=== PATIENT | male | born 1975 | race Caucasian/White ===

== ENCOUNTER 2016-10-11 09:42 | Emergency (ER) | payer MEDICAID ==
[~2016-10-11] VITALS: Ht 185.4 cm; Wt 84.7 kg
[~2016-10-11 09:42] MED LIST: ACID1TAB7 PO; AMOX1TAB12 PO; ASPI-515 PO; ATOR20TA9 PO; ESCI10TA PO; GABA300C10 PO; HYDR-3240 PO; INSU100C5 SQ-INSULIN; INSU100V13 SQ; MORP30TA PO; OXYC1TAB7 PO; OXYC20TA2 PO; PARO10TA3 PO; SULF1TAB24 PO; TRAZ50TA18 PO
[2016-10-11] MEDS ORDERED: ONDANSETRON 2MG/ML, 2ML IVPush ONE (10:00)
[2016-10-11] MEDS ORDERED: SODIUM CHLORIDE 0.9% 1,000 ML IV ONE (10:00)
[2016-10-11] MEDS ORDERED: MORPHINE SULFATE 4 MG/ML, 1ML IVPush PRN (10:00)
[2016-10-11] MEDS ORDERED: ONDANSETRON 2MG/ML, 2ML ONE (10:30)
[2016-10-11] MEDS ORDERED: MORPHINE SULFATE 4 MG/ML, 1ML ONE (10:30)
[2016-10-11 10:33] LABS: ASPARTATE AMINO TRANSFERASE 26 U/L (15-37); BLOOD UREA NITROGEN 9 mg/dL (7-18)
[2016-10-11] MEDS ORDERED: BACITRACIN ZINC OINT 500U/GM, 0.9 GM ONE (11:20)
[2016-10-11 11:36] VITALS: BP 113/77
== END 2016-10-11 11:38 | disposition home or self-care (01) ==
LOC: ED 10:30
DX: L89.92 Pressure ulcer of unspecified site, stage 2 (principal); E11.621 Type 2 diabetes mellitus with foot ulcer; E78.00 Pure hypercholesterolemia, unspecified; I10 Essential (primary) hypertension; E11.21 Type 2 diabetes mellitus with diabetic nephropathy; Z79.4 Long term (current) use of insulin; Z87.891 Personal history of nicotine dependence; E11.40 Type 2 diabetes mellitus with diabetic neuropathy, unspecified; Z89.511 Acquired absence of right leg below knee
CPT/HCPCS: 36415; 73630; 80053; 85025; 96361; 96374; 96375; 99285; J2405; J7030

== ENCOUNTER 2017-01-23 22:49 | Emergency (ER) | payer MEDICAID, MEDICARE ==
[~2017-01-23] VITALS: Ht 185.4 cm; Wt 101.7 kg
[2017-01-23] MEDS ORDERED: INSU100C SQ-INSULIN (23:10)
[2017-01-23] MEDS ORDERED: OXYC20TA2 PO (23:12)
[2017-01-23] MEDS ORDERED: DOXY100C2 PO (23:12)
[2017-01-23 23:18] LABS: HEMATOCRIT 50.4 % (39.2-51.8); WHITE BLOOD COUNT 6.4 x10^3/uL (3.4-10)
[2017-01-23 23:31] LABS: ASPARTATE AMINO TRANSFERASE 43 U/L (15-37); BLOOD UREA NITROGEN 9 mg/dL (7-18)
[2017-01-23 23:33] LABS: ACETAMINOPHEN 2 mcg/mL (10-30)
[2017-01-24 01:22] VITALS: BP 139/84
== END 2017-01-24 01:25 | disposition home or self-care (01) ==
LOC: ED 23:27
DX: M25.472 Effusion, left ankle (principal); I10 Essential (primary) hypertension; E78.00 Pure hypercholesterolemia, unspecified; E11.40 Type 2 diabetes mellitus with diabetic neuropathy, unspecified
CPT/HCPCS: 36415; 80053; 80307; 80329; 85025; 99285; G0479; G0480

== ENCOUNTER 2019-09-26 08:57 | Outpatient (CLI) | payer MEDICARE | END 2019-09-26 23:59 | disposition home or self-care (01) | LOC: WOUND 08:57 | PROVIDERS: ATTEND Podiatrist Foot & Ankle Surgery | DX: T87.89 Other complications of amputation stump (principal); E11.621 Type 2 diabetes mellitus with foot ulcer; L97.521 Non-pressure chronic ulcer of other part of left foot limited to breakdown of skin; E11.40 Type 2 diabetes mellitus with diabetic neuropathy, unspecified; E11.51 Type 2 diabetes mellitus with diabetic peripheral angiopathy without gangrene; F32.9 Major depressive disorder, single episode, unspecified; G94 Other disorders of brain in diseases classified elsewhere; I12.9 Hypertensive chronic kidney disease with stage 1 through stage 4 chronic kidney disease, or unspecified chronic kidney disease; E11.22 Type 2 diabetes mellitus with diabetic chronic kidney disease; N18.9 Chronic kidney disease, unspecified; E11.69 Type 2 diabetes mellitus with other specified complication; M86.672 Other chronic osteomyelitis, left ankle and foot; G89.4 Chronic pain syndrome; F17.200 Nicotine dependence, unspecified, uncomplicated; Z89.421 Acquired absence of other right toe(s); Z79.4 Long term (current) use of insulin; Y83.5 Amputation of limb(s) as the cause of abnormal reaction of the patient, or of later complication, without mention of misadventure at the time of the procedure; Y92.238 Other place in hospital as the place of occurrence of the external cause | CPT/HCPCS: 97597; G0463; 99214 ==

== ENCOUNTER → 2019-09-26 | Outpatient (CLI) | payer MEDICARE ==
[~2019-09-26] MED LIST changes: +ATOR20TA37 PO; -ATOR20TA9 PO; +DOXY100C2 PO; +INSU100C SQ-INSULIN; -TRAZ50TA18 PO; +TRAZ50TA66 PO
== END | disposition home or self-care (01) ==
LOC: CFH 10:22
PROVIDERS: ATTEND Podiatrist Foot & Ankle Surgery
DX: M77.32 Calcaneal spur, left foot (principal); M25.872 Other specified joint disorders, left ankle and foot; E11.621 Type 2 diabetes mellitus with foot ulcer

== ENCOUNTER → 2019-10-10 | Outpatient (CLI) | payer MEDICARE | END | disposition home or self-care (01) | LOC: WOUND 10:06 | PROVIDERS: ATTEND Podiatrist Foot & Ankle Surgery | DX: E11.621 Type 2 diabetes mellitus with foot ulcer (principal); L97.521 Non-pressure chronic ulcer of other part of left foot limited to breakdown of skin; E11.40 Type 2 diabetes mellitus with diabetic neuropathy, unspecified; E11.51 Type 2 diabetes mellitus with diabetic peripheral angiopathy without gangrene; F32.9 Major depressive disorder, single episode, unspecified; I10 Essential (primary) hypertension; G89.4 Chronic pain syndrome; I12.9 Hypertensive chronic kidney disease with stage 1 through stage 4 chronic kidney disease, or unspecified chronic kidney disease; E11.22 Type 2 diabetes mellitus with diabetic chronic kidney disease; N18.9 Chronic kidney disease, unspecified; F17.200 Nicotine dependence, unspecified, uncomplicated; Z89.422 Acquired absence of other left toe(s); Z89.421 Acquired absence of other right toe(s); Z79.4 Long term (current) use of insulin | CPT/HCPCS: 97597 ==

== ENCOUNTER → 2019-12-23 | Outpatient (CLI) | payer MEDICAID, MEDICARE ==
[~2019-12-23] MED LIST changes: +ALBUMIN HUMAN 25%, 25GM/100ML ONE; +LIDOCAINE 1%, 10ML ONE
== END | disposition home or self-care (01) ==
LOC: RAD 11:22
PROVIDERS: ATTEND Internal Medicine Gastroenterology
DX: R18.8 Other ascites (principal); K70.30 Alcoholic cirrhosis of liver without ascites; Z88.8 Allergy status to other drugs, medicaments and biological substances; Z91.048 Other nonmedicinal substance allergy status
CPT/HCPCS: 49083; P9047

== ENCOUNTER 2020-01-06 17:22 | Emergency (ER) | payer MEDICARE ==
[~2020-01-06] VITALS: Ht 185.4 cm; Wt 97.0 kg
[~2020-01-06 17:22] MED LIST changes: -ALBUMIN HUMAN 25%, 25GM/100ML ONE; -LIDOCAINE 1%, 10ML ONE
--- NOTE | 2020-01-06 19:35 | NUR ---
CRUDE TESTER: PT AMBULATORY TO ROOM FROM LOBBY WITH STEADY GAIT WITH [employer]
[2020-01-06 20:07] LABS: MICROSCOPIC AUTO
[2020-01-06] MEDS ORDERED: LIDOCAINE-MPF 1%, 5ML ONE (21:17)
[2020-01-06 21:20] LABS: ALANINE AMINOTRANSFERASE 22 U/L (12-78); ALBUMIN 2.1 g/dL (3.4-5.0); ANION GAP 4 mmol/L (5-15); BASOPHILS % (AUTO) 1 % (0-1); CALCIUM 8.1 mg/dL (8.5-10.1); CHLORIDE 109 mmol/L (98-107); CREATININE 0.97 mg/dL (0.7-1.3); EOSINOPHILS % (AUTO) 4 % (1-7); LYMPHOCYTES % (AUTO) 31 % (22-44); MEAN CORPUSCULAR HEMOGLOBIN 29.6 pg (27.5-34.5); MEAN CORPUSCULAR HGB CONC 33.5 g/dL (33.2-36.2); MEAN PLATELET VOLUME 9.1 fL (7.4-10.4); MONOCYTES % (AUTO) 9 % (2-9); NEUTROPHILS % (AUTO) 54 % (42-75); PLATELET COUNT 138 x10^3/uL (130-400); RED BLOOD COUNT 5.09 x10^6/uL (4.38-5.82); RED CELL DISTRIBUTION WIDTH 15.5 % (9.4-14.8)
[2020-01-06 21:22] LABS: ALKALINE PHOSPHATASE 46 U/L (45-117); BILIRUBIN,TOTAL 1.6 mg/dL (0.2-1.0)
[2020-01-06 21:23] LABS: MD NO
--- NOTE | 2020-01-06 21:23 | NUR ---
Paracentesis supplies requested from ultrasound
[2020-01-07 01:53] VITALS: BP 122/68
== END 2020-01-07 01:55 | disposition home or self-care (01) ==
LOC: ED 21:31
DX: S90.812A Abrasion, left foot, initial encounter (principal); K70.31 Alcoholic cirrhosis of liver with ascites; K40.91 Unilateral inguinal hernia, without obstruction or gangrene, recurrent; Z87.891 Personal history of nicotine dependence; Z88.2 Allergy status to sulfonamides; Z88.8 Allergy status to other drugs, medicaments and biological substances; Z88.1 Allergy status to other antibiotic agents; Z91.048 Other nonmedicinal substance allergy status; W18.30XA Fall on same level, unspecified, initial encounter; Y93.89 Activity, other specified; Y92.89 Other specified places as the place of occurrence of the external cause; Y99.8 Other external cause status
CPT/HCPCS: 36415; 49083; 76857; 80053; 81001; 82042; 83615; 85025; 87070; 87205; 89051; 99285

== ENCOUNTER 2020-01-23 10:22 | Outpatient (CLI) | payer MEDICARE, MEDICAID ==
[~2020-01-23 10:22] MED LIST changes: -ESCI10TA PO; +ESCI10TA5 PO
[2020-01-23] MEDS ORDERED: LIDOCAINE 1%, 10ML ONE (10:27)
[2020-01-23] MEDS ORDERED: ALBUMIN HUMAN 25% 100 ML IV ONE (11:30)
[2020-01-23] MEDS ORDERED: ALBUMIN HUMAN 25% 200 ML IV ONE ×2 (11:30)
[2020-01-30] MEDS ORDERED: OXYC5CAP2 PO (14:46)
[2020-01-30] MEDS ORDERED: INSU100V13 SQ (14:46)
[2020-01-30] MEDS ORDERED: ALPR1TAB2 PO (14:46)
[2020-02-14] MEDS ORDERED: FURO20TA3 PO (12:00)
[2020-02-14] MEDS ORDERED: SPIR25TA PO (12:00)
== END 2020-01-23 23:59 | disposition home or self-care (01) ==
LOC: RAD 10:22
PROVIDERS: ATTEND Internal Medicine Gastroenterology
DX: R18.8 Other ascites (principal); K74.60 Unspecified cirrhosis of liver; Z88.8 Allergy status to other drugs, medicaments and biological substances; Z91.048 Other nonmedicinal substance allergy status; Z79.82 Long term (current) use of aspirin; Z79.899 Other long term (current) drug therapy; Z79.4 Long term (current) use of insulin; Z72.89 Other problems related to lifestyle; Z87.891 Personal history of nicotine dependence; Z82.49 Family history of ischemic heart disease and other diseases of the circulatory system
CPT/HCPCS: 49083

== ENCOUNTER → 2020-01-30 | Outpatient (CLI) | payer MEDICARE, MEDICAID ==
[~2020-01-30] MED LIST changes: +ALPR1TAB2 PO; +ESCI10TA PO; -ESCI10TA5 PO; +OXYC5CAP2 PO
[2020-01-30 15:37] LABS: ALANINE AMINOTRANSFERASE 18 U/L (12-78); ALBUMIN 2.2 g/dL (3.4-5.0); ANION GAP 6 mmol/L (5-15); CALCIUM 8.4 mg/dL (8.5-10.1); CHLORIDE 109 mmol/L (98-107); CREATININE 0.97 mg/dL (0.7-1.3)
[2020-01-30 15:40] LABS: ALKALINE PHOSPHATASE 40 U/L (45-117); BILIRUBIN,TOTAL 2.8 mg/dL (0.2-1.0); TOTAL PROTEIN 6.7 g/dL (6.4-8.2)
== END | disposition home or self-care (01) ==
LOC: STAR 14:07
PROVIDERS: ATTEND Surgery
DX: Z01.812 Encounter for preprocedural laboratory examination (principal); Z20.828 Contact with and (suspected) exposure to other viral communicable diseases; K40.90 Unilateral inguinal hernia, without obstruction or gangrene, not specified as recurrent
CPT/HCPCS: 36415; 80053; 87635; 93005

== ENCOUNTER 2020-02-04 05:17 | Day surgery (SDC) | payer MEDICARE, MEDICAID ==
[~2020-02-04] VITALS: Ht 185.4 cm; Wt 103.1 kg
[2020-02-04 06:00] VITALS: BP 110/82
[2020-02-04] MEDS ORDERED: LACTATED RINGERS 1,000 ML IV SCH (06:00)
[2020-02-04] MEDS ORDERED: CHLORHEXIDINE 15 ML UDC MM ONE (06:00)
[2020-02-04] MEDS ORDERED: EPINEPHRINE 1 MG/ML, 1ML ONE (06:47)
[2020-02-04] MEDS ORDERED: BUPIVACAINE/PF 0.5% ONE (06:47)
[2020-02-04] MEDS ORDERED: MIDAZOLAM 1 MG/ML, 2ML ONE (07:05)
[2020-02-04] MEDS ORDERED: FENTANYL PF 250 MCG/5ML ONE (07:05)
[2020-02-04] MEDS ORDERED: PROPOFOL 10 MG/ML, 20ML ONE (07:27)
[2020-02-04] MEDS ORDERED: ONDANSETRON 2MG/ML, 2ML ONE (07:27)
[2020-02-04] MEDS ORDERED: SUGAMMADEX 200 MG/2 ML IVPush ONE (07:27)
[2020-02-04] MEDS ORDERED: SUCCINYLCHOLINE 20 MG/ML, 10ML ONE (07:27)
[2020-02-04] MEDS ORDERED: CEFAZOLIN 1,000 MG ONE (07:27)
[2020-02-04] MEDS ORDERED: ROCURONIUM 10MG/ML,5ML ONE (07:27)
[2020-02-04] MEDS ORDERED: METOCLOPRAMIDE 5 MG/ML, 2ML IV PRN (08:30)
[2020-02-04] MEDS ORDERED: LABETALOL 5MG/ML, 20ML IV PRN (08:30)
[2020-02-04] MEDS ORDERED: HYDROmorphone 1 MG/ML, 1ML INJ IV PRN (08:30)
[2020-02-04] MEDS ORDERED: ALBUTEROL SULFATE 2.5 MG/3 ML NPPB PRN (08:30)
[2020-02-04] MEDS ORDERED: KETOROLAC 30 MG/1 ML IV PRN (08:30)
[2020-02-04] MEDS ORDERED: OXYcodone 5 MG/5 ML ORAL.SOL UDC PO PRN (08:30)
[2020-02-04] MEDS ORDERED: DIAZEPAM 5 MG/ML, 2ML IV PRN ×2 (08:30)
[2020-02-04] MEDS ORDERED: hydrALAzine 20 MG/ML, 1ML IV PRN (08:30)
[2020-02-04] MEDS ORDERED: PROMETHAZINE 25 MG/ML, 1ML IV PRN (08:30)
[2020-02-04] MEDS ORDERED: MEPERIDINE/PF 25MG/0.5ML IVPush PRN (08:30)
[2020-02-04] MEDS ORDERED: FENTANYL PF 100 MCG/2ML IV PRN (08:30)
[2020-02-04] MEDS ORDERED: ONDANSETRON 2MG/ML, 2ML IVPush PRN (08:30)
[2020-02-04] MEDS ORDERED: DIAZEPAM 5 MG/ML, 2ML ONE (08:53)
[2020-02-04] MEDS ORDERED: FENTANYL PF 100 MCG/2ML ONE (08:53)
[2020-02-04] MEDS ORDERED: PROMETHAZINE 25 MG/ML, 1ML ONE (08:54)
[2020-02-04] MEDS ORDERED: OXYcodone 5 MG/5 ML ORAL.SOL UDC ONE (09:49)
== END 2020-02-04 13:48 | disposition home or self-care (01) ==
LOC: OUT 05:17
PROVIDERS: ATTEND Surgery
DX: K40.90 Unilateral inguinal hernia, without obstruction or gangrene, not specified as recurrent (principal); R18.8 Other ascites; K74.60 Unspecified cirrhosis of liver; K72.90 Hepatic failure, unspecified without coma; E11.9 Type 2 diabetes mellitus without complications; Z79.4 Long term (current) use of insulin; Z79.891 Long term (current) use of opiate analgesic; Z79.899 Other long term (current) drug therapy; Z87.891 Personal history of nicotine dependence; Z88.8 Allergy status to other drugs, medicaments and biological substances
CPT/HCPCS: 49505; 74018; 82962; C1781; J0171; J0330; J0690; J2250; J2405; J2550; J2704; J3010; J3360; J7120

== ENCOUNTER → 2020-02-26 | Outpatient (CLI) | payer MEDICARE, MEDICAID ==
[~2020-02-26] MED LIST changes: +FURO20TA3 PO; +LIDOCAINE 1%, 10ML ONE; +SPIR25TA PO
== END | disposition home or self-care (01) ==
LOC: RAD 10:46
PROVIDERS: ATTEND Internal Medicine Gastroenterology
DX: K70.31 Alcoholic cirrhosis of liver with ascites (principal); F15.10 Other stimulant abuse, uncomplicated; Z79.4 Long term (current) use of insulin; Z79.899 Other long term (current) drug therapy; Z88.8 Allergy status to other drugs, medicaments and biological substances; Z72.89 Other problems related to lifestyle; Z87.891 Personal history of nicotine dependence
CPT/HCPCS: 49083

== ENCOUNTER → 2020-03-06 | Outpatient (CLI) | payer MEDICARE, MEDICAID ==
[~2020-03-06] MED LIST changes: +ALBUMIN HUMAN 25%, 25GM/100ML ONE
== END | disposition home or self-care (01) ==
LOC: RAD 11:39
PROVIDERS: ATTEND Internal Medicine Gastroenterology
DX: R18.8 Other ascites (principal); K70.30 Alcoholic cirrhosis of liver without ascites; Z88.8 Allergy status to other drugs, medicaments and biological substances
CPT/HCPCS: 49083; P9047

== ENCOUNTER 2020-03-25 11:51 | Outpatient (CLI) | payer MEDICARE, MEDICAID ==
[~2020-03-25 11:51] MED LIST changes: -ALBUMIN HUMAN 25%, 25GM/100ML ONE; -LIDOCAINE 1%, 10ML ONE
[2020-03-25] MEDS ORDERED: LIDOCAINE 1%, 10ML ONE (11:57)
[2020-03-25] MEDS ORDERED: ALBUMIN HUMAN 25%, 25GM/100ML ONE (12:45)
== END 2020-03-25 23:59 | disposition home or self-care (01) ==
LOC: RAD 11:51
PROVIDERS: ATTEND Internal Medicine Gastroenterology
DX: K70.31 Alcoholic cirrhosis of liver with ascites (principal); F15.90 Other stimulant use, unspecified, uncomplicated; Z88.8 Allergy status to other drugs, medicaments and biological substances; Z79.4 Long term (current) use of insulin; Z79.899 Other long term (current) drug therapy; Z72.89 Other problems related to lifestyle; Z87.891 Personal history of nicotine dependence; Z83.3 Family history of diabetes mellitus
CPT/HCPCS: 49083; P9047

== ENCOUNTER → 2020-04-06 | Outpatient (CLI) | payer MEDICARE, MEDICAID ==
[~2020-04-06] MED LIST changes: +ALBUMIN HUMAN 25%, 25GM/100ML ONE; -ESCI10TA PO; +ESCI10TA5 PO; +LIDOCAINE 1%, 10ML ONE
== END | disposition home or self-care (01) ==
LOC: RAD 13:45
PROVIDERS: ATTEND Internal Medicine Gastroenterology
DX: K70.31 Alcoholic cirrhosis of liver with ascites (principal); F15.90 Other stimulant use, unspecified, uncomplicated; Z88.8 Allergy status to other drugs, medicaments and biological substances; Z91.048 Other nonmedicinal substance allergy status; Z72.89 Other problems related to lifestyle; Z87.891 Personal history of nicotine dependence; Z79.899 Other long term (current) drug therapy; Z79.4 Long term (current) use of insulin
CPT/HCPCS: 49083; P9047

== ENCOUNTER 2020-04-13 10:37 | Outpatient (CLI) | payer MEDICARE, MEDICAID ==
[~2020-04-13 10:37] MED LIST changes: -ALBUMIN HUMAN 25%, 25GM/100ML ONE; -LIDOCAINE 1%, 10ML ONE
[2020-04-13] MEDS ORDERED: LIDOCAINE 1%, 10ML ONE (10:53)
[2020-04-13] MEDS ORDERED: ALBUMIN HUMAN 25%, 25GM/100ML ONE (11:49)
== END 2020-04-13 23:59 | disposition home or self-care (01) ==
LOC: RAD 10:37
PROVIDERS: ATTEND Internal Medicine Gastroenterology
DX: K70.31 Alcoholic cirrhosis of liver with ascites (principal); F15.90 Other stimulant use, unspecified, uncomplicated; Z88.8 Allergy status to other drugs, medicaments and biological substances; Z91.048 Other nonmedicinal substance allergy status; Z72.89 Other problems related to lifestyle; Z87.891 Personal history of nicotine dependence; Z79.899 Other long term (current) drug therapy; Z79.4 Long term (current) use of insulin
CPT/HCPCS: 49083; P9047

== ENCOUNTER → 2020-04-21 | Outpatient (CLI) | payer MEDICARE, MEDICAID ==
[~2020-04-21] MED LIST changes: +ALBUMIN HUMAN 25%, 25GM/100ML ONE; +HYDR-1067 PO; -HYDR-3240 PO; +LIDOCAINE 1%, 10ML ONE
== END | disposition home or self-care (01) ==
LOC: RAD 11:38
PROVIDERS: ATTEND Internal Medicine Gastroenterology
DX: R18.8 Other ascites (principal); K70.30 Alcoholic cirrhosis of liver without ascites
CPT/HCPCS: 49083; P9047

== ENCOUNTER 2020-04-27 11:45 | Outpatient (CLI) | payer MEDICARE, MEDICAID ==
[~2020-04-27 11:45] MED LIST changes: -ALBUMIN HUMAN 25%, 25GM/100ML ONE; -LIDOCAINE 1%, 10ML ONE
[2020-04-27] MEDS ORDERED: LIDOCAINE 1%, 10ML ONE (11:57)
[2020-04-27] MEDS ORDERED: ALBUMIN HUMAN 25%, 25GM/100ML ONE (12:44)
== END 2020-04-27 23:59 | disposition home or self-care (01) ==
LOC: RAD 11:45
PROVIDERS: ATTEND Internal Medicine Gastroenterology
DX: R18.8 Other ascites (principal); K70.30 Alcoholic cirrhosis of liver without ascites
CPT/HCPCS: 49083; P9047

== ENCOUNTER 2020-05-05 08:43 | Outpatient (CLI) | payer MEDICARE, MEDICAID ==
[~2020-05-05 08:43] MED LIST changes: -ASPI-515 PO; +ASPI-963 PO; -ESCI10TA5 PO; +ESCI10TA97 PO
[2020-05-05] MEDS ORDERED: LIDOCAINE 1%, 10ML ONE (08:53)
[2020-05-05] MEDS ORDERED: ALBUMIN HUMAN 25% 12.5 GM/50 ML ONE (11:00)
[2020-05-05] MEDS ORDERED: ALBUMIN HUMAN 25%, 25GM/100ML ONE (11:00)
== END 2020-05-05 23:59 | disposition home or self-care (01) ==
LOC: RAD 08:43
PROVIDERS: ATTEND Internal Medicine Gastroenterology
DX: K70.31 Alcoholic cirrhosis of liver with ascites (principal); E11.9 Type 2 diabetes mellitus without complications; F15.90 Other stimulant use, unspecified, uncomplicated; Z88.8 Allergy status to other drugs, medicaments and biological substances; Z79.4 Long term (current) use of insulin; Z79.899 Other long term (current) drug therapy; Z72.89 Other problems related to lifestyle; Z87.891 Personal history of nicotine dependence; Z83.3 Family history of diabetes mellitus
CPT/HCPCS: 49083; P9047

== ENCOUNTER 2020-05-11 11:25 | Outpatient (CLI) | payer MEDICARE, MEDICAID ==
[2020-05-11] MEDS ORDERED: LIDOCAINE 1%, 10ML ONE (11:31)
[2020-05-11] MEDS ORDERED: ALBUMIN HUMAN 25% 12.5 GM/50 ML ONE (11:50)
== END 2020-05-11 23:59 | disposition home or self-care (01) ==
LOC: RAD 11:25
PROVIDERS: ATTEND Internal Medicine Gastroenterology
DX: R18.8 Other ascites (principal); K70.30 Alcoholic cirrhosis of liver without ascites; Z88.8 Allergy status to other drugs, medicaments and biological substances
CPT/HCPCS: 49083; P9047

== ENCOUNTER 2020-05-18 08:42 | Outpatient (CLI) | payer MEDICARE, MEDICAID ==
[2020-05-18] MEDS ORDERED: LIDOCAINE 1%, 10ML ONE (08:51)
[2020-05-18] MEDS ORDERED: ALBUMIN HUMAN 25%, 25GM/100ML ONE (10:11)
== END 2020-05-18 23:59 | disposition home or self-care (01) ==
LOC: RAD 08:42
PROVIDERS: ATTEND Internal Medicine Gastroenterology
DX: K70.31 Alcoholic cirrhosis of liver with ascites (principal); Z88.8 Allergy status to other drugs, medicaments and biological substances
CPT/HCPCS: 49083; P9047

== ENCOUNTER 2020-05-28 09:34 | Outpatient (CLI) | payer MEDICARE, MEDICAID ==
[~2020-05-28 09:34] MED LIST changes: +LIDOCAINE 1%, 10ML ONE
== END 2020-05-28 23:59 | disposition home or self-care (01) ==
LOC: RAD 09:34
PROVIDERS: ATTEND Internal Medicine Gastroenterology
DX: R18.8 Other ascites (principal); K70.30 Alcoholic cirrhosis of liver without ascites; K72.90 Hepatic failure, unspecified without coma; F41.9 Anxiety disorder, unspecified; Z79.4 Long term (current) use of insulin; Z79.891 Long term (current) use of opiate analgesic; Z79.899 Other long term (current) drug therapy; Z87.891 Personal history of nicotine dependence; Z88.8 Allergy status to other drugs, medicaments and biological substances; Z98.890 Other specified postprocedural states
CPT/HCPCS: 49083

== ENCOUNTER 2020-06-05 11:32 | Outpatient (CLI) | payer MEDICARE, MEDICAID ==
[~2020-06-05 11:32] MED LIST changes: -LIDOCAINE 1%, 10ML ONE
[2020-06-05] MEDS ORDERED: LIDOCAINE 1%, 10ML ONE (11:38)
[2020-06-05] MEDS ORDERED: ALBUMIN HUMAN 25%, 25GM/100ML ONE (16:10)
== END 2020-06-05 23:59 | disposition home or self-care (01) ==
LOC: RAD 11:32
PROVIDERS: ATTEND Physician Assistant
DX: K70.31 Alcoholic cirrhosis of liver with ascites (principal); F41.9 Anxiety disorder, unspecified; E11.9 Type 2 diabetes mellitus without complications; F15.90 Other stimulant use, unspecified, uncomplicated; Z88.8 Allergy status to other drugs, medicaments and biological substances; Z91.048 Other nonmedicinal substance allergy status; Z79.899 Other long term (current) drug therapy; Z98.890 Other specified postprocedural states; Z79.84 Long term (current) use of oral hypoglycemic drugs; Z87.891 Personal history of nicotine dependence; Z72.89 Other problems related to lifestyle
CPT/HCPCS: 49083; P9047

== ENCOUNTER 2020-06-07 01:18 | Inpatient (IN) | payer MEDICARE, MEDICAID ==
[~2020-06-07] VITALS: Ht 185.4 cm; Wt 95.8 kg
[2020-06-07 02:07] LABS: MICROSCOPIC INDICATED
[2020-06-07 02:08] LABS: BASOPHILS % (AUTO) 1 % (0-1); EOSINOPHILS % (AUTO) 8 % (1-7); LYMPHOCYTES % (AUTO) 27 % (22-44); MEAN CORPUSCULAR HEMOGLOBIN 30.2 pg (27.5-34.5); MEAN CORPUSCULAR HGB CONC 34.2 g/dL (33.2-36.2); MEAN PLATELET VOLUME 9.2 fL (7.4-10.4); MONOCYTES % (AUTO) 9 % (2-9); NEUTROPHILS % (AUTO) 56 % (42-75); PLATELET COUNT 130 x10^3/uL (130-400); RED BLOOD COUNT 4.71 x10^6/uL (4.38-5.82); RED CELL DISTRIBUTION WIDTH 14.9 % (9.4-14.8)
[2020-06-07 02:10] LABS: MD NO
[2020-06-07 02:18] LABS: ALANINE AMINOTRANSFERASE 22 U/L (12-78); ALBUMIN 2.8 g/dL (3.4-5.0); ANION GAP 6 mmol/L (5-15); CALCIUM 8.1 mg/dL (8.5-10.1); CHLORIDE 106 mmol/L (98-107); CREATININE 1.29 mg/dL (0.7-1.3)
[2020-06-07 02:20] LABS: ALKALINE PHOSPHATASE 68 U/L (45-117); BILIRUBIN,TOTAL 1.3 mg/dL (0.2-1.0); TOTAL PROTEIN 6.3 g/dL (6.4-8.2)
--- NOTE | 2020-06-07 03:23 | NUR ---
fnps: pt from lobby to room 13
[2020-06-07] MEDS ORDERED: LIDOCAINE 2%,20 ML JEL.PF.APP MM ONE ×2 (04:45→05:00)
--- NOTE | 2020-06-07 05:15 | NUR ---
URO-JET APPLIED. PATIENT UPDATED ON PLAN OF CARE.
--- NOTE | 2020-06-07 05:30 | NUR ---
ATTEMPTED TO PLACE THREE WAY CATH, NOT SUCCESSFUL. PATIENT HAS LARGE AMOUNT OF EDEMA TO [place], THROUGHOUT THE LENGTH OF PENIS. PATIENT STATED THAT THIS IS AN OFTEN OCCURANCE FOR HIM. MD AWARE. PATIENT UPDATED ON PLAN OF CARE. NO NOTED ADDITIONAL NEEDS AT THIS TIME. ICE APPLIED TO IMPROVE EDEMA TO AREA.
--- NOTE | 2020-06-07 05:45 | NUR ---
ICE THERAPY HAS NOT IMPROVED EDEMA. AWARE. WILL RE-APPLY ICE.
--- NOTE | 2020-06-07 05:55 | NUR ---
NO IMPROVEMENT TO EDEMA. AWARE.
--- NOTE | 2020-06-07 06:13 | NUR ---
TASK RN: PATIENT UPDATED ON PLAN OF CARE. [address]F [address] CATH WILL BE OBTAINED FROM [facility], AWAITING ARRIVAL.
--- NOTE | 2020-06-07 06:39 | NUR ---
TASK RN: ATTEMPTED TO PASS THREE WAY CATH, AND COUDE CATH. NOT SUCCESSFUL. MD AWARE, PATIENT UPDATED ON PLAN OF CARE.
[2020-06-07] MEDS ORDERED: CEFTRIAXONE PMX 1GM/50ML 50 ML IV ONE (07:00)
[2020-06-07] MEDS ORDERED: CEFTRIAXONE PMX 1GM/50ML 50 ML ONE (07:03)
--- NOTE | 2020-06-07 07:15 | NUR ---
REPORT FROM [facility]. PIV INITIATED, ORDERS FOR IV ABX. PT MEDICATED PER JUNKarolina ESCALANTE IN TO UPDATE PT, PER [facility] SEVERAL UNSUCCESSFULL URINARY CATHETER PLACEMENT, PT TO HAVE UROLOGY EVAL FOR THIS. DAYANA VALERO NOTED AT THIS TIME Addendum: 06/07/20 at 0722 by AMCCOMB MYKE ENCISO NEEDED
--- NOTE | 2020-06-07 08:27 | NUR ---
ERMD UPDATED PT NOW WITH HYPOTENSION 77/38. NO ORDERS FOR FLUID BOLUS, ALBUMIN ORDERED. PT [id number] REQUESTING CHOCOLATE CAKE, AND COFFEE.
[2020-06-07] MEDS ORDERED: ALBUMIN HUMAN 5% 500 ML IV ONE (08:30)
--- NOTE | 2020-06-07 08:51 | NUR ---
UROLOGIST HERE TO PLACE CARDONA, CARDONA WITH BLOODY URINE NO CLOTS NOTED. WILL UPDATE ERMD
[2020-06-07] MEDS ORDERED: TAMSULOSIN 0.4 MG CAP.ER.24H PO ONE (09:30)
[2020-06-07] MEDS ORDERED: TAMSULOSIN 0.4 MG CAP.ER.24H ONE (09:30)
--- NOTE | 2020-06-07 10:33 | NUR ---
REPORT TO RECIEVING RN, AWAITING TRANSPORT
[2020-06-07 11:28] VITALS: BP 135/82
[2020-06-07] MEDS ORDERED: ONDANSETRON 2MG/ML, 2ML ONE (12:08)
[2020-06-07] MEDS: ONDANSETRON 2MG/ML, 2ML IVPush PRN ×2 (12:10→21:33)
[2020-06-07] MEDS ORDERED: GLUCAGON 1 MG IM PRN (14:00)
[2020-06-07] MEDS ORDERED: DEXTROSE 50%, 50ML SYRINGE IVPush PRN (14:00)
[2020-06-07] MEDS ORDERED: DEXTROSE 4 GM TAB.CHEW PO PRN (14:00)
[2020-06-07 15:02] LABS: INTERNATIONAL NORMALIZED RATIO 1.48 (0.93-1.1); PROTHROMBIN TIME 15.7 Seconds (9.6-11.5)
[2020-06-07] MEDS: CIPROFLOXACIN/PMX 400MG/200ML 200 ML IV SCH (15:12)
[2020-06-07] MEDS: GABAPENTIN 300 MG CAPSULE PO SCH ×3 (15:35→23:05)
[2020-06-07] MEDS: INSULIN LISPRO 100 UNITS/ML, PEN SQ-INSULIN SCH ×2 (16:00→23:09)
[2020-06-07] MEDS: OXYcodone IR 5MG TABLET PO PRN ×3 (16:01→23:06)
[2020-06-07 19:16] VITALS: BP 100/64
[2020-06-07] MEDS: SODIUM CHLORIDE FLUSH 10ML SYR IVF SCH (21:00)
[2020-06-07] MEDS: INSULIN GLARGINE 100 UNITS/ML, PEN SQ-INSULIN SCH (23:08)
[2020-06-08 01:20] VITALS: BP 114/69
[2020-06-08] MEDS: CIPROFLOXACIN/PMX 400MG/200ML 200 ML IV SCH ×2 (02:17→13:38)
[2020-06-08 05:49] LABS: BASOPHILS % (AUTO) 1 % (0-1); EOSINOPHILS % (AUTO) 6 % (1-7); LYMPHOCYTES % (AUTO) 25 % (22-44); MEAN CORPUSCULAR HEMOGLOBIN 29.9 pg (27.5-34.5); MONOCYTES % (AUTO) 9 % (2-9); NEUTROPHILS % (AUTO) 59 % (42-75); PLATELET COUNT 112 x10^3/uL (130-400); RED BLOOD COUNT 4.15 x10^6/uL (4.38-5.82); RED CELL DISTRIBUTION WIDTH 14.5 % (9.4-14.8)
[2020-06-08 06:00] LABS: MD NO
[2020-06-08 06:04] LABS: CHLORIDE 109 mmol/L (98-107)
[2020-06-08 06:28] LABS: ALANINE AMINOTRANSFERASE 15 U/L (12-78); ALBUMIN 2.3 g/dL (3.4-5.0); ALKALINE PHOSPHATASE 42 U/L (45-117); ANION GAP 7 mmol/L (5-15); BILIRUBIN,TOTAL 1.1 mg/dL (0.2-1.0); CALCIUM 8.1 mg/dL (8.5-10.1); CREATININE 1.39 mg/dL (0.7-1.3); TOTAL PROTEIN 5.1 g/dL (6.4-8.2)
[2020-06-08 07:23] VITALS: BP 120/79
[2020-06-08] MEDS: GABAPENTIN 300 MG CAPSULE PO SCH ×3 (08:17→20:31)
[2020-06-08] MEDS: FUROSEMIDE 20 MG TABLET PO SCH (08:17)
[2020-06-08] MEDS: INSULIN GLARGINE 100 UNITS/ML, PEN SQ-INSULIN SCH ×2 (08:18→20:32)
[2020-06-08] MEDS: INSULIN LISPRO 100 UNITS/ML, PEN SQ-INSULIN SCH ×4 (08:18→20:32)
[2020-06-08] MEDS: SODIUM CHLORIDE FLUSH 10ML SYR IVF SCH ×2 (08:18→20:31)
[2020-06-08] MEDS ORDERED: SPIRONOLACTONE 25 MG TABLET PO SCH (09:00)
[2020-06-08 12:17] VITALS: BP 119/81
[2020-06-08] MEDS: OXYcodone IR 5MG TABLET PO PRN ×2 (13:18→20:35)
[2020-06-08 18:47] VITALS: BP 101/63
[2020-06-09] MEDS: CIPROFLOXACIN/PMX 400MG/200ML 200 ML IV SCH ×2 (01:54→14:31)
[2020-06-09 02:00] VITALS: BP 97/58
[2020-06-09 05:52] LABS: BASOPHILS % (AUTO) 1 % (0-1); EOSINOPHILS % (AUTO) 6 % (1-7); LYMPHOCYTES % (AUTO) 27 % (22-44); MEAN CORPUSCULAR HEMOGLOBIN 29.9 pg (27.5-34.5); MEAN CORPUSCULAR HGB CONC 33.5 g/dL (33.2-36.2); MEAN PLATELET VOLUME 9.5 fL (7.4-10.4); MONOCYTES % (AUTO) 10 % (2-9); NEUTROPHILS % (AUTO) 56 % (42-75); PLATELET COUNT 119 x10^3/uL (130-400); RED BLOOD COUNT 4.39 x10^6/uL (4.38-5.82); RED CELL DISTRIBUTION WIDTH 14.6 % (9.4-14.8)
[2020-06-09 05:53] LABS: MD NO
[2020-06-09 06:05] LABS: ANION GAP 6 mmol/L (5-15); CALCIUM 8.3 mg/dL (8.5-10.1); CHLORIDE 107 mmol/L (98-107)
[2020-06-09 06:13] VITALS: BP 121/74
[2020-06-09] MEDS: INSULIN GLARGINE 100 UNITS/ML, PEN SQ-INSULIN SCH (07:45)
[2020-06-09] MEDS: FUROSEMIDE 20 MG TABLET PO SCH (07:45)
[2020-06-09] MEDS: GABAPENTIN 300 MG CAPSULE PO SCH ×2 (07:45→15:57)
[2020-06-09] MEDS: INSULIN LISPRO 100 UNITS/ML, PEN SQ-INSULIN SCH ×3 (07:46→16:41)
[2020-06-09] MEDS: SODIUM CHLORIDE FLUSH 10ML SYR IVF SCH (07:46)
[2020-06-09] MEDS: OXYcodone IR 5MG TABLET PO PRN (07:51)
[2020-06-09 11:17] VITALS: BP 146/79
[2020-06-09] MEDS ORDERED: CIPR500T87 PO (17:04)
== END 2020-06-09 17:44 | disposition home or self-care (01) | DRG 690 ==
LOC: ED 04:06 → EDIP 09:45 → 4EST 11:02
PROVIDERS: ADMIT Internal Medicine; ATTEND Internal Medicine
PROC: 0T9B80Z Drainage of Bladder with Drainage Device, Via Natural or Artificial Opening Endoscopic (ICD-10-PCS; principal; 2020-06-07)
DX: N30.91 Cystitis, unspecified with hematuria (principal); D62 Acute posthemorrhagic anemia; I13.0 Hypertensive heart and chronic kidney disease with heart failure and stage 1 through stage 4 chronic kidney disease, or unspecified chronic kidney disease; K76.6 Portal hypertension; I50.32 Chronic diastolic (congestive) heart failure; D68.9 Coagulation defect, unspecified; N17.9 Acute kidney failure, unspecified; K70.31 Alcoholic cirrhosis of liver with ascites; N18.30 Chronic kidney disease, stage 3 unspecified; D63.1 Anemia in chronic kidney disease; D69.6 Thrombocytopenia, unspecified; E11.22 Type 2 diabetes mellitus with diabetic chronic kidney disease; E88.09 Other disorders of plasma-protein metabolism, not elsewhere classified; E87.5 Hyperkalemia; E78.5 Hyperlipidemia, unspecified; E11.65 Type 2 diabetes mellitus with hyperglycemia; E78.00 Pure hypercholesterolemia, unspecified; E11.51 Type 2 diabetes mellitus with diabetic peripheral angiopathy without gangrene; B96.20 Unspecified Escherichia coli [E. coli] as the cause of diseases classified elsewhere; E11.40 Type 2 diabetes mellitus with diabetic neuropathy, unspecified; N48.89 Other specified disorders of penis; E83.51 Hypocalcemia; F32.9 Major depressive disorder, single episode, unspecified; Z89.511 Acquired absence of right leg below knee; Z79.4 Long term (current) use of insulin; Z86.14 Personal history of Methicillin resistant Staphylococcus aureus infection
CPT/HCPCS: 36415; 80048; 80053; 81001; 82962; 83735; 84100; 85025; 85610; 85730; 87077; 87086; 87186; 96365; 96375; 99285; G0378; J0696; J0744; J2405; P9045; J1815

== ENCOUNTER 2020-06-15 08:21 | Outpatient (CLI) | payer MEDICARE, MEDICAID ==
[~2020-06-15 08:21] MED LIST changes: +CIPR500T87 PO
[2020-06-15] MEDS ORDERED: LIDOCAINE 1%, 10ML ONE (09:00)
[2020-06-15] MEDS ORDERED: ALBUMIN HUMAN 25%, 25GM/100ML ONE (10:00)
== END 2020-06-15 23:59 | disposition home or self-care (01) ==
LOC: RAD 08:21
PROVIDERS: ATTEND Physician Assistant
DX: K70.31 Alcoholic cirrhosis of liver with ascites (principal); E11.9 Type 2 diabetes mellitus without complications; Z79.4 Long term (current) use of insulin; Z79.899 Other long term (current) drug therapy; Z87.891 Personal history of nicotine dependence; Z88.8 Allergy status to other drugs, medicaments and biological substances; Z98.890 Other specified postprocedural states
CPT/HCPCS: 49083; P9047

== ENCOUNTER 2020-06-19 09:08 | Outpatient (CLI) | payer MEDICARE, MEDICAID ==
[2020-06-19] MEDS ORDERED: LIDOCAINE 1%, 10ML ONE (09:17)
== END 2020-06-19 23:59 | disposition home or self-care (01) ==
LOC: RAD 09:08
PROVIDERS: ATTEND Physician Assistant
DX: K70.31 Alcoholic cirrhosis of liver with ascites (principal); K72.90 Hepatic failure, unspecified without coma; D68.9 Coagulation defect, unspecified; E11.9 Type 2 diabetes mellitus without complications; F41.9 Anxiety disorder, unspecified; Z79.4 Long term (current) use of insulin; Z79.899 Other long term (current) drug therapy; Z87.891 Personal history of nicotine dependence; Z88.8 Allergy status to other drugs, medicaments and biological substances; Z98.890 Other specified postprocedural states
CPT/HCPCS: 49083

== ENCOUNTER 2020-06-26 11:42 | Outpatient (CLI) | payer MEDICARE, MEDICAID ==
[2020-06-26] MEDS ORDERED: LIDOCAINE 1%, 10ML ONE (11:53)
== END 2020-06-26 23:59 | disposition home or self-care (01) ==
LOC: RAD 11:42
PROVIDERS: ATTEND Physician Assistant
DX: R18.8 Other ascites (principal); K74.60 Unspecified cirrhosis of liver; Z88.1 Allergy status to other antibiotic agents; Z88.8 Allergy status to other drugs, medicaments and biological substances
CPT/HCPCS: 49083

== ENCOUNTER 2020-07-03 12:07 | Outpatient (CLI) | payer MEDICARE, MEDICAID ==
[~2020-07-03 12:07] MED LIST changes: +LIDOCAINE 1%, 10ML ONE
== END 2020-07-03 23:59 | disposition home or self-care (01) ==
LOC: RAD 12:07
PROVIDERS: ATTEND Physician Assistant
DX: K70.31 Alcoholic cirrhosis of liver with ascites (principal); E11.9 Type 2 diabetes mellitus without complications; Z79.4 Long term (current) use of insulin; Z79.899 Other long term (current) drug therapy; Z87.891 Personal history of nicotine dependence; Z88.8 Allergy status to other drugs, medicaments and biological substances
CPT/HCPCS: 49083

== ENCOUNTER 2020-07-10 11:33 | Outpatient (CLI) | payer MEDICARE, MEDICAID ==
[~2020-07-10 11:33] MED LIST changes: -DOXY100C2 PO; +DOXY100C5 PO; -HYDR-1067 PO; +HYDR-2214 PO; -LIDOCAINE 1%, 10ML ONE; +SULF-23 PO; -SULF1TAB24 PO
[2020-07-10] MEDS ORDERED: LIDOCAINE 1%, 10ML ONE (11:45)
[2020-07-10] MEDS ORDERED: ALBUMIN HUMAN 25%, 25GM/100ML ONE (12:15)
[2020-07-10] MEDS ORDERED: PLEASE ENTER HEIGHT AND WEIGHT MC SCH (12:30)
== END 2020-07-10 23:59 | disposition home or self-care (01) ==
LOC: RAD 11:33
PROVIDERS: ATTEND Physician Assistant
DX: R18.8 Other ascites (principal); K70.30 Alcoholic cirrhosis of liver without ascites; Z88.8 Allergy status to other drugs, medicaments and biological substances
CPT/HCPCS: 49083; P9047

== ENCOUNTER 2020-07-23 14:27 | Outpatient (CLI) | payer MEDICARE, MEDICAID ==
[~2020-07-23 14:27] MED LIST changes: +ALBUMIN HUMAN 25%, 25GM/100ML ONE; +DOXY100C2 PO; -DOXY100C5 PO
[2020-07-23] MEDS ORDERED: LIDOCAINE 1%, 10ML ONE (14:38)
[2020-07-23] MEDS ORDERED: ALBUMIN HUMAN 25%, 25GM/100ML ONE (15:43)
== END 2020-07-23 23:59 | disposition home or self-care (01) ==
LOC: RAD 14:27
PROVIDERS: ATTEND Physician Assistant
DX: K70.31 Alcoholic cirrhosis of liver with ascites (principal); F41.9 Anxiety disorder, unspecified; E11.9 Type 2 diabetes mellitus without complications; Z88.8 Allergy status to other drugs, medicaments and biological substances; Z91.048 Other nonmedicinal substance allergy status; Z79.899 Other long term (current) drug therapy; Z98.890 Other specified postprocedural states; Z87.891 Personal history of nicotine dependence
CPT/HCPCS: 49083; P9047

== ENCOUNTER 2020-07-30 12:45 | Outpatient (CLI) | payer MEDICARE, MEDICAID ==
[2020-07-30] MEDS ORDERED: LIDOCAINE 1%, 10ML ONE (12:56)
[2020-07-30] MEDS ORDERED: ALBUMIN HUMAN 25%, 25GM/100ML ONE (13:57)
== END 2020-07-30 23:59 | disposition home or self-care (01) ==
LOC: RAD 12:45
PROVIDERS: ATTEND Physician Assistant
DX: R18.8 Other ascites (principal); K70.30 Alcoholic cirrhosis of liver without ascites; Z88.8 Allergy status to other drugs, medicaments and biological substances
CPT/HCPCS: 49083; P9047

== ENCOUNTER → 2020-08-05 | Outpatient (CLI) | payer MEDICARE, MEDICAID ==
[~2020-08-05] MED LIST changes: +LIDOCAINE 1%, 10ML ONE
== END | disposition home or self-care (01) ==
LOC: RAD 11:29
PROVIDERS: ATTEND Physician Assistant
DX: R18.8 Other ascites (principal); K70.30 Alcoholic cirrhosis of liver without ascites; Z88.8 Allergy status to other drugs, medicaments and biological substances
CPT/HCPCS: 49083; P9047

== ENCOUNTER 2020-08-13 08:57 | Outpatient (CLI) | payer MEDICARE, MEDICAID ==
[~2020-08-13 08:57] MED LIST changes: -ALBUMIN HUMAN 25%, 25GM/100ML ONE; -LIDOCAINE 1%, 10ML ONE
[2020-08-13] MEDS ORDERED: LIDOCAINE 1%, 10ML ONE (09:54)
[2020-08-13] MEDS ORDERED: ALBUMIN HUMAN 25%, 25GM/100ML ONE (10:09)
== END 2020-08-13 23:59 | disposition home or self-care (01) ==
LOC: RAD 08:57
PROVIDERS: ATTEND Physician Assistant
DX: R18.8 Other ascites (principal); K70.30 Alcoholic cirrhosis of liver without ascites; Z88.8 Allergy status to other drugs, medicaments and biological substances
CPT/HCPCS: 49083; P9047

== ENCOUNTER → 2020-08-20 | Outpatient (CLI) | payer MEDICARE, MEDICAID ==
[~2020-08-20] MED LIST changes: +ALBUMIN HUMAN 25%, 25GM/100ML ONE; +LIDOCAINE 1%, 10ML ONE
== END | disposition home or self-care (01) ==
LOC: RAD 12:15
PROVIDERS: ATTEND Physician Assistant
DX: K70.30 Alcoholic cirrhosis of liver without ascites (principal); R18.8 Other ascites; E11.9 Type 2 diabetes mellitus without complications; F41.9 Anxiety disorder, unspecified; F15.90 Other stimulant use, unspecified, uncomplicated; Z88.1 Allergy status to other antibiotic agents; Z88.8 Allergy status to other drugs, medicaments and biological substances; Z98.890 Other specified postprocedural states; Z79.899 Other long term (current) drug therapy; Z79.4 Long term (current) use of insulin; Z91.048 Other nonmedicinal substance allergy status; Z72.89 Other problems related to lifestyle
CPT/HCPCS: 49083; P9047

== ENCOUNTER → 2020-08-27 | Outpatient (CLI) | payer MEDICARE, MEDICAID | END | disposition home or self-care (01) | LOC: RAD 07:40 | PROVIDERS: ATTEND Physician Assistant | DX: R18.8 Other ascites (principal); K70.30 Alcoholic cirrhosis of liver without ascites; Z88.8 Allergy status to other drugs, medicaments and biological substances | CPT/HCPCS: 49083; P9047 ==

== ENCOUNTER 2020-09-02 12:57 | Outpatient (CLI) | payer MEDICARE, MEDICAID ==
[~2020-09-02 12:57] MED LIST changes: -ALBUMIN HUMAN 25%, 25GM/100ML ONE; -LIDOCAINE 1%, 10ML ONE
[2020-09-02] MEDS ORDERED: LIDOCAINE 1%, 10ML ONE (13:13)
== END 2020-09-02 23:59 | disposition home or self-care (01) ==
LOC: RAD 12:57
PROVIDERS: ATTEND Physician Assistant
DX: K70.31 Alcoholic cirrhosis of liver with ascites (principal); Z88.8 Allergy status to other drugs, medicaments and biological substances
CPT/HCPCS: 49083

== ENCOUNTER → 2020-09-11 | Outpatient (CLI) | payer MEDICARE, MEDICAID ==
[~2020-09-11] MED LIST changes: +LIDOCAINE-MPF 1%, 5ML ONE
== END | disposition home or self-care (01) ==
LOC: RAD 08:52
PROVIDERS: ATTEND Physician Assistant
DX: K70.31 Alcoholic cirrhosis of liver with ascites (principal); Z88.8 Allergy status to other drugs, medicaments and biological substances
CPT/HCPCS: 49083

== ENCOUNTER → 2020-09-18 | Outpatient (CLI) | payer MEDICARE, MEDICAID ==
[~2020-09-18] MED LIST changes: +ALBUMIN HUMAN 25%, 25GM/100ML ONE; +LIDOCAINE 1%, 10ML ONE; -LIDOCAINE-MPF 1%, 5ML ONE
== END | disposition home or self-care (01) ==
LOC: RAD 10:02
PROVIDERS: ATTEND Physician Assistant
DX: R18.8 Other ascites (principal); K70.30 Alcoholic cirrhosis of liver without ascites; Z88.8 Allergy status to other drugs, medicaments and biological substances
CPT/HCPCS: 49083; P9047

== ENCOUNTER → 2020-09-28 | Outpatient (CLI) | payer MEDICARE, MEDICAID ==
[~2020-09-28] MED LIST changes: +ALBUMIN HUMAN 25% 12.5 GM/50 ML ONE; -LIDOCAINE 1%, 10ML ONE; +LIDOCAINE-MPF 1%, 5ML ONE
== END | disposition home or self-care (01) ==
LOC: RAD 13:16
PROVIDERS: ATTEND Physician Assistant
DX: R18.8 Other ascites (principal); K70.30 Alcoholic cirrhosis of liver without ascites; Z88.8 Allergy status to other drugs, medicaments and biological substances
CPT/HCPCS: 49083; P9047

== ENCOUNTER → 2020-10-06 | Outpatient (CLI) | payer MEDICARE, MEDICAID ==
[~2020-10-06] MED LIST changes: -ALBUMIN HUMAN 25% 12.5 GM/50 ML ONE
== END | disposition home or self-care (01) ==
LOC: RAD 10:57
PROVIDERS: ATTEND Physician Assistant
DX: R18.8 Other ascites (principal); K70.30 Alcoholic cirrhosis of liver without ascites
CPT/HCPCS: 49083; P9047

== ENCOUNTER 2020-10-15 09:06 | Outpatient (CLI) | payer MEDICARE, MEDICAID ==
[~2020-10-15 09:06] MED LIST changes: -ALBUMIN HUMAN 25%, 25GM/100ML ONE; -LIDOCAINE-MPF 1%, 5ML ONE
[2020-10-15] MEDS ORDERED: LIDOCAINE-MPF 1%, 5ML ONE (09:25)
[2020-10-15] MEDS ORDERED: ALBUMIN HUMAN 25%, 25GM/100ML ONE (10:07)
== END 2020-10-15 23:59 | disposition home or self-care (01) ==
LOC: RAD 09:06
PROVIDERS: ATTEND Physician Assistant
DX: R18.8 Other ascites (principal); K70.30 Alcoholic cirrhosis of liver without ascites; Z88.8 Allergy status to other drugs, medicaments and biological substances
CPT/HCPCS: 49083; P9047

== ENCOUNTER → 2020-10-23 | Outpatient (CLI) | payer MEDICARE, MEDICAID ==
[~2020-10-23] MED LIST changes: +LIDOCAINE-MPF 1%, 5ML ONE
== END | disposition home or self-care (01) ==
LOC: RAD 08:56
PROVIDERS: ATTEND Physician Assistant
DX: R18.8 Other ascites (principal); K70.30 Alcoholic cirrhosis of liver without ascites; E11.9 Type 2 diabetes mellitus without complications; Z79.899 Other long term (current) drug therapy; Z88.8 Allergy status to other drugs, medicaments and biological substances
CPT/HCPCS: 49083

== ENCOUNTER → 2020-10-30 | Outpatient (CLI) | payer MEDICARE, MEDICAID ==
[~2020-10-30] MED LIST changes: +ALBUMIN HUMAN 25%, 25GM/100ML ONE
== END | disposition home or self-care (01) ==
LOC: RAD 12:50
PROVIDERS: ATTEND Physician Assistant
DX: K70.31 Alcoholic cirrhosis of liver with ascites (principal); Z88.8 Allergy status to other drugs, medicaments and biological substances
CPT/HCPCS: 49083; P9047

== ENCOUNTER → 2020-11-06 | Outpatient (CLI) | payer MEDICARE, MEDICAID ==
[~2020-11-06] MED LIST changes: +LIDOCAINE 1%, 10ML ONE; -LIDOCAINE-MPF 1%, 5ML ONE
== END | disposition home or self-care (01) ==
LOC: RAD 13:34
PROVIDERS: ATTEND Physician Assistant
DX: K70.30 Alcoholic cirrhosis of liver without ascites (principal)
CPT/HCPCS: 49083; P9047

== ENCOUNTER → 2020-11-13 | Outpatient (CLI) | payer MEDICARE, MEDICAID | END | disposition home or self-care (01) | LOC: RAD 11:08 | PROVIDERS: ATTEND Physician Assistant | DX: R18.8 Other ascites (principal); K70.30 Alcoholic cirrhosis of liver without ascites; E11.9 Type 2 diabetes mellitus without complications; F41.9 Anxiety disorder, unspecified; Z79.4 Long term (current) use of insulin; Z79.899 Other long term (current) drug therapy; Z87.891 Personal history of nicotine dependence; Z88.8 Allergy status to other drugs, medicaments and biological substances | CPT/HCPCS: 49083; P9047 ==

== ENCOUNTER 2020-11-20 13:37 | Outpatient (CLI) | payer MEDICARE, MEDICAID ==
[~2020-11-20 13:37] MED LIST changes: -ALBUMIN HUMAN 25%, 25GM/100ML ONE; -LIDOCAINE 1%, 10ML ONE
[2020-11-20] MEDS ORDERED: LIDOCAINE 1%, 10ML ONE (13:48)
== END 2020-11-20 23:59 | disposition home or self-care (01) ==
LOC: RAD 13:37
PROVIDERS: ATTEND Physician Assistant
DX: K70.30 Alcoholic cirrhosis of liver without ascites (principal); Z88.8 Allergy status to other drugs, medicaments and biological substances
CPT/HCPCS: 49083

== ENCOUNTER 2020-11-27 12:31 | Outpatient (CLI) | payer MEDICARE, MEDICAID ==
[~2020-11-27 12:31] MED LIST changes: -DOXY100C2 PO; +DOXY100C5 PO
[2020-11-27] MEDS ORDERED: LIDOCAINE 1%, 10ML ONE (13:08)
[2020-11-27] MEDS ORDERED: ALBUMIN HUMAN 25%, 25GM/100ML ONE (13:49)
== END 2020-11-27 23:59 | disposition home or self-care (01) ==
LOC: RAD 12:31
PROVIDERS: ATTEND Physician Assistant
DX: R18.8 Other ascites (principal); K74.60 Unspecified cirrhosis of liver; Z88.8 Allergy status to other drugs, medicaments and biological substances
CPT/HCPCS: 49083; P9047

== ENCOUNTER 2020-12-03 10:49 | Outpatient (CLI) | payer MEDICARE, MEDICAID ==
[2020-12-03] MEDS ORDERED: LIDOCAINE 1%, 10ML ONE (11:01)
== END 2020-12-03 23:59 | disposition home or self-care (01) ==
LOC: RAD 10:49
PROVIDERS: ATTEND Physician Assistant
DX: K70.31 Alcoholic cirrhosis of liver with ascites (principal)
CPT/HCPCS: 49083